=== PATIENT | female | born 1935 | race Caucasian/White ===

== ENCOUNTER → 2016-04-19 | Outpatient (CLI) | payer BC ==
[~2016-04-19] MED LIST: ACET1TAB84 PO; AMLO-110 PO; ASPCH81X PO; ASPEC81 PO; CALC-51 PO; CITRACAL PO; EVS60 PO; IRON PO; LISI-725 PO; METO50TA16 PO; MULT-506 PO; MULTIVITAMIN PO; POTA10TA PO; PRED1SUS OPR; RALO60TA12 PO; TRIA75TA53 PO; TRIATAB3 PO; VITD PO
[2016-04-19 18:07] LABS: BLOOD UREA NITROGEN 15 mg/dl (7-18); BUN/CREATININE RATIO 16.4 (10-20); CARBON DIOXIDE 33 mmol/L (21-32); CHLORIDE 97 mmol/L (98-107); CREATININE 0.89 mg/dl (0.60-1.20); GLUCOSE 141 mg/dl (70-99); POTASSIUM 3.8 mmol/L (3.5-5.1); SODIUM 136 mmol/L (136-145)
[2016-04-19 18:18] LABS: THYROID STIMULATING HORMONE 0.853 uIu/ml (0.300-4.500)
== END | disposition home or self-care (01) ==
LOC: C.LABPVFM 15:04
PROVIDERS: ATTEND Family Medicine
DX: I10 Essential (primary) hypertension (principal); R25.1 Tremor, unspecified

== ENCOUNTER → 2016-06-09 | Day surgery (SDC) | payer BC ==
[2016-05-18 15:09] VITALS: Ht 152.4 cm; Wt 50.0 kg
[~2016-06-09] VITALS: Ht 152.4 cm; Wt 50.0 kg
[~2016-06-09] MED LIST changes: +500ML BSS 0.3ML EPI 1:1000PF IRRIG ONE; -ACET1TAB84 PO; +ACETAMINOPHEN 325 MG TAB PO PRN; +AMVISC PLUS 0.8ML SYRINGE INT OCU ONE; -ASPEC81 PO; +ATROPINE SULFATE 0.1 MG/ML 5ML SYR IV PRN; +AcetaZOLAMIDE 250 MG TAB ONE; +BETAXOLOL HCL 0.25% OP SUSP PER DROP CHARGE OPR SCH; +BRIMONIDINE TART 0.2% OP SOLN PER DROP CHARGE ONE; +BSS FLUSH ONE; -CITRACAL PO; -EVS60 PO; +EpHEDrine SULFATE INJ 50 MG/ML AMP IV PRN; +EpINEphrine INJ 1MG/ML AMP 1 MG/ML AMP ONE; -IRON PO; +LACTATED RINGER'S 1000ML 500 ML IV SCH; +LIDOCAINE 4% OP SOLN DROP CHARGE ONE; +LIDOCAINE 4% OP SOLN DROP CHARGE OPR SCH; +LIDOCAINE HCL 1% MPF 2 ML VIAL ONE; +MIDAZOLAM HCL 1 MG/ML 2ML VIAL ONE; +MIX: 4ML BSS 1ML EPI 1:1000 PF INSTIL ONE; +MOXIFLOXACIN OPH SOLN PER DROP CHARGE ONE; -MULTIVITAMIN PO; +OCUCOAT 1 ML SOLN IO ONE; +POVIDONE-IODINE OP SOLN 30 ML BTL ONE; +PROPARACAINE 0.5% OP SOLN PER DROP CHARGE OPR SCH; -RALO60TA12 PO; +RALO60TA30 PO; +TOBRAMYCIN/DEXAMETHASONE OPH OINT PER APPLN CHARGE ONE; -TRIA75TA53 PO; -VITD PO
--- NOTE | 2016-06-09 07:17 | History & Physical Bridge - [place] ---
H&P Re-Evaluation Bridge Note: I have examined the patient, reviewed the History & Physical and in the interval since the performance of the History & Physical I have noted the following changes of clinical significance: No changes noted
[2016-06-09] MEDS: PHENYLEPHRINE HCL 2.5% OP SOLN PER DROP CHARGE OPR SCH ×2 (08:02→08:03)
[2016-06-09] MEDS: TROPICAMIDE 1% OP SOLN PER DROP CHARGE OPR SCH ×2 (08:03→08:04)
[2016-06-09] MEDS: CYCLOPENTOLATE HCL 1% OP SOLN PER DROP CHARGE OPR SCH ×2 (08:04→08:05)
[2016-06-09] MEDS: MOXIFLOXACIN OPH SOLN PER DROP CHARGE OPR SCH ×2 (08:05→08:19)
--- NOTE | 2016-06-09 08:37 | Discharge Instructions-SurgCtr ---
Discharge Instructions Date of Service June 09, 2016. Visit Reason for Visit: Cataract Right Eye Discharge Discharge Diagnosis / Problem: lens implant right eye Discharge Goals Goal(s): Improve function Activity Recommendations Activity Limitations: resume your previous activity Lifting Limitations: no more than 10 pounds Exercise/Sports Limitations: gradually increase as tolerated May Resume Sexual Activity: when tolerated Shower/Bathe: tomorrow Driving or Machine Use: resume 1 day after discharge Anesthesia . Post Anesthesia Instructions: If you have had General Anesthesia or IV Sedation: * Do not drive today. * Resume driving when surgeon permits. * Do not make important decisions or sign legal documents today. * Call surgeon for: 1. Temperature elevations greater than 101 degrees F. 2. Uncontrollable pain. 3. Excessive bleeding. 4. Persistent nausea and vomiting. 5. Medication intolerance (nausea, vomiting or rash). * For nausea and vomiting use only clear liquids such as: tea, soda, bouillon until nausea subsides, then gradually increase diet as tolerated. * If you have any concerns or questions, call your surgeon's office. If physician is unavailable and it is an emergency, call 911 or go to the nearest emergency room. . Instructions / Follow-Up Instructions / Follow-Up ACTIVITY RECOMMENDATIONS: * Light activities. * Mild irritation and blurred vision are common for the first few days. * You may walk outside, read, watch television. * Redness around the white part of the eye is common. MEDICATIONS: Resume previous medications unless instructed otherwise by your surgeon. * Take white Diamox (Acetazolamide) tablet at 1 pm today. Start all eye drops at 1 pm today: * Eye drops (today and tomorrow): Prednisone - one drop in operative eye every 3 hours while awake Ofloxacin - one drop in operative eye every 3 hours while awake Continue Glaucoma drops as directed in Left Eye; Istalol Left Eye every morning and Xalatan Left Eye every evening. SPECIAL CARE INSTRUCTIONS: * Tape plastic shield over eye to sleep at night. Call your doctor at with any concerns or problems. FOLLOW UP VISIT: Follow-up with Dr Browne at [place] office as scheduled. Diet Recommendations Home Diet: no limitations Procedures Procedures Performed: cataract extraction with lens implant Pending Studies Studies pending at discharge: no Medical Emergencies . Who to Call and When: Medical Emergencies: If at any time you feel your situation is an emergency, please call 911 immediately. . Non-Emergent Contact Non-Emergency issues call your: Panel Raiser Operator Call Non-Emergent contact if: your pain is not controlled [phone] . . "Provider Documentation" section prepared by Felix Browne. .
--- NOTE | 2016-06-09 08:39 | [facility] Operative Report ---
Operative Report Date of Service June 09, 2016. Operative Report 1. PREOPERATIVE DIAGNOSIS: Senile nuclear cataract, right eye. 2. POSTOPERATIVE DIAGNOSIS: Senile nuclear cataract, right eye. 3. PROCEDURE: Phacoemulsification of right cataract with posterior chamber lens implant, type [employer]ch [employer] Lomb, model MX60, power +20.0 diopters. ANESTHESIA: Local standby. SURGEON: Dr. Browne. COMPLICATIONS: None. OPERATING TIME: 10 minutes. 4. OPERATION AND FINDINGS: DESCRIPTION OF PROCEDURE: The right pupil was dilated. The anesthetic was administered using a topical technique. The right eye was prepped and draped. A speculum was placed. A clear corneal incision was formed. The chamber was filled with Amvisc Plus and Endocoat. Epinephrine solution was used. A paracentesis was placed. A capsulorrhexis was performed. The nucleus was hydrodissected. The lens was removed with phacoemulsification. Time was 5.69 seconds. The aspiration unit was used to remove the cortex. The capsule was filled with Amvisc Plus. The lens implant was folded and placed into the capsule. The incision was hydrated. The Amvisc was aspirated. The wound was secure. The chamber was deep. The pupil was round. Brimonidine, TobraDex ointment and Vigamox solution were placed. The speculum was removed. The patient was returned to the Recovery Room in stable condition. I attest to the content of the Intraoperative Record and any orders documented therein. Any exceptions are noted below. The scribe's documentation has been prepared in my presence, under my direction and personally reviewed by me in its entirety. I confirm that the note above accurately reflects all work, treatment, procedures, and medical decision making performed by me. I personally scribed for Felix Browne M.D. ([email or web address]) on 06/09/16 at 08:39. Electronically submitted by Mercedez Wallace (TAO).
[2016-06-09 08:41] VITALS: TEMP 37.5
--- NOTE | 2016-06-09 08:43 | Anesthesia Progress Nt - [facility] ---
Anesthesia Post Op Note Date & Time June 09, 2016 at 08:43 Vital Signs Pain Intensity: 0 Vital Signs Past 12 Hours Date Time Temp Pulse Resp B/P Pulse Ox O2 Delivery O2 Flow Rate FiO2 06/09/16 07:59 36.4 61 16 160/78 99 Room Air Notes Mental Status: alert / awake / arousable, participated in evaluation Pt Amnestic to Procedure: Yes Nausea / Vomiting: adequately controlled Pain: adequately controlled Airway Patency, RR, SpO2: stable & adequate BP & HR: stable & adequate Hydration State: stable & adequate Anesthetic Complications: no major complications apparent
[2016-06-09 09:07] VITALS: BP 136/67; PULSE 58; O2SAT 95
== END | disposition home or self-care (01) ==
LOC: X.SURG 07:43
PROVIDERS: ATTEND Specialist
DX: H25.11 Age-related nuclear cataract, right eye (principal); I10 Essential (primary) hypertension; Z68.21 Body mass index [BMI] 21.0-21.9, adult

== ENCOUNTER → 2016-06-23 | Day surgery (SDC) | payer BC ==
[2016-06-22 09:07] VITALS: Ht 152.4 cm; Wt 50.0 kg
[~2016-06-23] VITALS: Ht 152.4 cm; Wt 50.0 kg
[~2016-06-23] MED LIST changes: -AcetaZOLAMIDE 250 MG TAB ONE; +AcetaZOLAMIDE 250 MG TAB PO SCH; +BETAXOLOL HCL 0.25% OP SUSP PER DROP CHARGE OPL SCH; -BETAXOLOL HCL 0.25% OP SUSP PER DROP CHARGE OPR SCH; +ENDOCOAT 0.85ML SYRINGE INT OCU ONE; -LIDOCAINE 4% OP SOLN DROP CHARGE ONE; +LIDOCAINE 4% OP SOLN DROP CHARGE OPL SCH; -LIDOCAINE 4% OP SOLN DROP CHARGE OPR SCH; +PROPARACAINE 0.5% OP SOLN PER DROP CHARGE OPL SCH; -PROPARACAINE 0.5% OP SOLN PER DROP CHARGE OPR SCH
[2016-06-23] MEDS: PHENYLEPHRINE HCL 2.5% OP SOLN PER DROP CHARGE OPL SCH ×2 (10:46→10:51)
[2016-06-23] MEDS: TROPICAMIDE 1% OP SOLN PER DROP CHARGE OPL SCH ×2 (10:47→10:52)
[2016-06-23] MEDS: CYCLOPENTOLATE HCL 1% OP SOLN PER DROP CHARGE OPL SCH ×2 (10:48→10:53)
[2016-06-23] MEDS: MOXIFLOXACIN OPH SOLN PER DROP CHARGE OPL SCH ×2 (10:49→10:59)
[2016-06-23] MEDS: LIDOCAINE 4% OP SOLN DROP CHARGE ONE ×2 (11:00→12:05)
--- NOTE | 2016-06-23 12:03 | Discharge Instructions-SurgCtr ---
Discharge Instructions Date of Service June 23, 2016. Visit Reason for Visit: Left Cataract Discharge Discharge Diagnosis / Problem: lens implant left eye Discharge Goals Goal(s): Improve function Activity Recommendations Activity Limitations: resume your previous activity Lifting Limitations: no more than 10 pounds Exercise/Sports Limitations: gradually increase as tolerated May Resume Sexual Activity: when tolerated Shower/Bathe: tomorrow Driving or Machine Use: resume 1 day after discharge Anesthesia . Post Anesthesia Instructions: If you have had General Anesthesia or IV Sedation: * Do not drive today. * Resume driving when surgeon permits. * Do not make important decisions or sign legal documents today. * Call surgeon for: 1. Temperature elevations greater than 101 degrees F. 2. Uncontrollable pain. 3. Excessive bleeding. 4. Persistent nausea and vomiting. 5. Medication intolerance (nausea, vomiting or rash). * For nausea and vomiting use only clear liquids such as: tea, soda, bouillon until nausea subsides, then gradually increase diet as tolerated. * If you have any concerns or questions, call your surgeon's office. If physician is unavailable and it is an emergency, call 911 or go to the nearest emergency room. . Instructions / Follow-Up Instructions / Follow-Up ACTIVITY RECOMMENDATIONS: * Light activities. * Mild irritation and blurred vision are common for the first few days. * You may walk outside, read, watch television. * Redness around the white part of the eye is common. MEDICATIONS: Resume previous medications unless instructed otherwise by your surgeon. * Take white Diamox (Acetazolamide) tablet at 3 pm today. Start all eye drops at 3 pm today: * Eye drops (today and tomorrow): Prednisone - one drop in operative eye every 3 hours while awake Ofloxacin - one drop in operative eye every 3 hours while awake SPECIAL CARE INSTRUCTIONS: * Tape plastic shield over eye to sleep at night. Call your doctor at with any concerns or problems. FOLLOW UP VISIT: Follow-up with Dr Browne at [place] office as scheduled. Diet Recommendations Home Diet: no limitations Procedures Procedures Performed: cataract extraction with lens implant Pending Studies Studies pending at discharge: no Medical Emergencies . Who to Call and When: Medical Emergencies: If at any time you feel your situation is an emergency, please call 911 immediately. . Non-Emergent Contact Non-Emergency issues call your: Cyber Security Administrator Call Non-Emergent contact if: your pain is not controlled [phone] . . "Provider Documentation" section prepared by Felix Browne. .
--- NOTE | 2016-06-23 12:05 | [facility] Operative Report ---
Operative Report Date of Service June 23, 2016. Operative Report 1. PREOPERATIVE DIAGNOSIS: Senile nuclear cataract, left eye. 2. POSTOPERATIVE DIAGNOSIS: Senile nuclear cataract, left eye. 3. PROCEDURE: Phacoemulsification of left cataract with posterior chamber lens implant, type Bausch [employer] Lomb, model MX60, power +20.5 diopters. ANESTHESIA: Local standby. SURGEON: Dr. Browne. COMPLICATIONS: None. OPERATING TIME: 10 minutes. 4. OPERATION AND FINDINGS: DESCRIPTION OF PROCEDURE: The left pupil was dilated. The anesthetic was administered using a topical technique. The left eye was prepped and draped. A speculum was placed. A clear corneal incision was formed. The chamber was filled with Amvisc Plus and Endocoat. Epinephrine solution was used. A paracentesis was placed. A capsulorrhexis was performed. The nucleus was hydrodissected. A lens was removed with phacoemulsification. Time was 10.11 seconds. The aspiration unit was used to remove the cortex. The capsule was filled with Amvisc Plus. The lens implant was folded and placed into the capsule. The incision was hydrated. The Amvisc was aspirated. The wound was secure. The chamber was deep. The pupil was round. Brimonidine, TobraDex ointment and Vigamox solution were placed. The speculum was removed. The patient was returned to the Recovery Room in stable condition. I attest to the content of the Intraoperative Record and any orders documented therein. Any exceptions are noted below. The scribe's documentation has been prepared in my presence, under my direction and personally reviewed by me in its entirety. I confirm that the note above accurately reflects all work, treatment, procedures, and medical decision making performed by me. I personally scribed for Felix Browne M.D. ([email or web address]) on 06/23/16 at 12:05. Electronically submitted by Mercedez Wallace (TAO).
--- NOTE | 2016-06-23 12:19 | Anesthesia Progress Nt - [facility] ---
Anesthesia Post Op Note Date & Time June 23, 2016 at 12:20 Vital Signs Pain Intensity: 0 Vital Signs Past 12 Hours Date Time Temp Pulse Resp B/P Pulse Ox O2 Delivery O2 Flow Rate FiO2 06/23/16 12:10 36.5 66 16 148/73 100 Room Air 06/23/16 10:25 36.7 72 16 164/76 96 Room Air Notes Mental Status: alert / awake / arousable, participated in evaluation Pt Amnestic to Procedure: Yes Nausea / Vomiting: adequately controlled Pain: adequately controlled Airway Patency, RR, SpO2: stable & adequate BP & HR: stable & adequate Hydration State: stable & adequate Anesthetic Complications: no major complications apparent
[2016-06-23 12:32] VITALS: BP 130/57; PULSE 63; O2SAT 97
== END | disposition home or self-care (01) ==
LOC: X.SURG 10:14
PROVIDERS: ATTEND Specialist
DX: H25.12 Age-related nuclear cataract, left eye (principal); I10 Essential (primary) hypertension; Z79.82 Long term (current) use of aspirin; Z79.899 Other long term (current) drug therapy

== ENCOUNTER → 2017-06-13 | Outpatient (CLI) | payer BC ==
[~2017-06-13] MED LIST changes: -500ML BSS 0.3ML EPI 1:1000PF IRRIG ONE; -ACETAMINOPHEN 325 MG TAB PO PRN; -AMVISC PLUS 0.8ML SYRINGE INT OCU ONE; -ATROPINE SULFATE 0.1 MG/ML 5ML SYR IV PRN; -AcetaZOLAMIDE 250 MG TAB PO SCH; -BETAXOLOL HCL 0.25% OP SUSP PER DROP CHARGE OPL SCH; -BRIMONIDINE TART 0.2% OP SOLN PER DROP CHARGE ONE; -BSS FLUSH ONE; -ENDOCOAT 0.85ML SYRINGE INT OCU ONE; -EpHEDrine SULFATE INJ 50 MG/ML AMP IV PRN; -EpINEphrine INJ 1MG/ML AMP 1 MG/ML AMP ONE; -LACTATED RINGER'S 1000ML 500 ML IV SCH; -LIDOCAINE 4% OP SOLN DROP CHARGE OPL SCH; -LIDOCAINE HCL 1% MPF 2 ML VIAL ONE; -MIDAZOLAM HCL 1 MG/ML 2ML VIAL ONE; -MIX: 4ML BSS 1ML EPI 1:1000 PF INSTIL ONE; -MOXIFLOXACIN OPH SOLN PER DROP CHARGE ONE; -OCUCOAT 1 ML SOLN IO ONE; -POVIDONE-IODINE OP SOLN 30 ML BTL ONE; -PROPARACAINE 0.5% OP SOLN PER DROP CHARGE OPL SCH; -TOBRAMYCIN/DEXAMETHASONE OPH OINT PER APPLN CHARGE ONE
[2017-06-13 19:16] LABS: ALBUMIN 3.7 gm/dl (3.4-5.0); ALT/SGPT 17 U/L (12-78); AST/SGOT 17 U/L (15-37); BLOOD UREA NITROGEN 19 mg/dl (7-18); CALCIUM 8.5 mg/dl (8.5-10.1); CARBON DIOXIDE 32 mmol/L (21-32); CREATININE 0.94 mg/dl (0.60-1.20); GLUCOSE 119 mg/dl (70-99); POTASSIUM 3.6 mmol/L (3.5-5.1); SODIUM 135 mmol/L (136-145)
[2017-06-13 19:27] LABS: ALKALINE PHOSPHATASE 77 U/L (45-117); TOTAL PROTEIN 7.3 gm/dl (6.4-8.2)
== END | disposition home or self-care (01) ==
LOC: C.LABPVFM 14:54
PROVIDERS: ATTEND Family Medicine
DX: I10 Essential (primary) hypertension (principal)